=== PATIENT | male | born 1970 | race Caucasian/White ===

== ENCOUNTER 2020-04-29 17:27 | Emergency (ER) | payer MEDICAID ==
[~2020-04-29] VITALS: Ht 162.6 cm; Wt 122.7 kg
[~2020-04-29 17:27] MED LIST: FLUO-191 PO; LISI-661 PO
[2020-04-29 17:52] VITALS: BP 134/71
[2020-04-29] MEDS ORDERED: BUPR-93 PO (18:03)
[2020-04-29] MEDS ORDERED: MIRT-89 PO (18:03)
== END 2020-04-29 19:05 | disposition left against medical advice (07) ==
LOC: EMS 17:27
DX: M79.89 Other specified soft tissue disorders (principal); Z53.21 Procedure and treatment not carried out due to patient leaving prior to being seen by health care provider